=== PATIENT | female | born 1955 | race Caucasian/White ===

== ENCOUNTER → 2017-11-22 | Outpatient (CLI) | payer OTHER ==
--- NOTE | 2017-11-27 14:01 | MM ---
Reason for exam: screening (asymptomatic). Last mammogram was performed 2 years and 3 months ago. History: Patient is postmenopausal. Took hormonal contraceptives for 5 years. Physical Findings: A clinical breast exam by your physician is recommended on an annual basis and results should be correlated with mammographic findings. MG Screening Mammo w CAD Bilateral CC and MLO view(s) were taken. Prior study comparison: August 17, 2015, bilateral MG screening mammo w CAD. April 04, 2012, bilateral screening mammogram free. The breast tissue is heterogeneously dense. This may lower the sensitivity of mammography. No suspicious abnormality. No significant changes when compared with prior studies. ASSESSMENT: Negative, BI-RAD 1 RECOMMENDATION: Routine screening mammogram of both breasts in 1 year.
== END | disposition home or self-care (01) ==
LOC: RADMAMWWP 07:19
PROVIDERS: ATTEND Family Medicine
DX: Z12.31 Encounter for screening mammogram for malignant neoplasm of breast (principal)
CPT/HCPCS: 77067

== ENCOUNTER → 2021-03-24 | Outpatient (CLI) | payer SELFPAY ==
--- NOTE | 2021-03-25 14:05 | MM ---
Reason for exam: screening (asymptomatic). Last mammogram was performed 3 years and 4 months ago. History: Patient is postmenopausal and has history of other cancer at age 61. Took hormonal contraceptives for 5 years. Physical Findings: A clinical breast exam by your physician is recommended on an annual basis and results should be correlated with mammographic findings. MG 3D Screening Mammo W/Cad Bilateral CC and MLO view(s) were taken. Prior study comparison: November 22, 2017, bilateral MG screening mammo w CAD. August 17, 2015, bilateral MG screening mammo w CAD. The breast tissue is heterogeneously dense. This may lower the sensitivity of mammography. Focal asymmetry 9mm middle depth medially 8cm from nipple MLO (41/63) and CC (24/49). This finding is changed when compared with previous exams. ASSESSMENT: Incomplete: need additional imaging evaluation, BI-RAD 0 RECOMMENDATION: Special view mammogram and ultrasound of the left breast. [facility] will attempt to contact patient to return for supplemental views and ultrasound.
== END | disposition home or self-care (01) ==
LOC: RADMAMWWP 15:52
PROVIDERS: ATTEND Family Medicine
DX: Z12.31 Encounter for screening mammogram for malignant neoplasm of breast (principal)
CPT/HCPCS: 77063; 77067

== ENCOUNTER → 2021-04-06 | Outpatient (CLI) | payer MEDICARE, OTHER ==
--- NOTE | 2021-04-06 12:32 | MM ---
Reason for exam: additional evaluation requested from abnormal screening. Last mammogram was performed less than 1 month ago. History: Patient is postmenopausal and has history of other cancer at age 61. Took hormonal contraceptives for 5 years. Physical Findings: Nurse Summary: increased nodularity in the left breast at 6-8 o'clock (nurse db). MG 3D Work Up W/Cad LT Spot compression CC, spot compression MLO, and LM view(s) were taken of the left breast. Prior study comparison: November 22, 2017, bilateral MG screening mammo w CAD. There are scattered fibroglandular densities. Finding: There is a 6 mm high density, spiculated round mass located 8 cm from the nipple in the 10 o'clock middle position of the left breast. There is no discrete abnormality at palpable marker. These results were verbally communicated with the patient and result sheet given to the patient on 04/06/21. ASSESSMENT: Incomplete: need additional imaging evaluation, BI-RAD 0 RECOMMENDATION: Ultrasound of the left breast.
--- NOTE | 2021-04-06 12:34 | USB ---
Reason for exam: additional evaluation requested from abnormal screening. History: Patient is postmenopausal and has history of other cancer at age 61. Took hormonal contraceptives for 5 years beginning at age 17. US Breast Workup Limited LT Left limited breast ultrasound including focal area of concern, retroareolar and axilla demonstrates a 0.5 x 0.4 x 0.7cm mixed lesion at 10 o'clock, probably correlates with mammogram, confirm after biopsy. These results were verbally communicated with the patient and result sheet given to the patient on 04/06/21. ASSESSMENT: Suspicious, BI-RAD 4 RECOMMENDATION: Ultrasound core biopsy of the left breast. (correlate with mammogram following biopsy) Called Dr. Bran office with mammographic findings and has scheduled an appointment for the patient for 05/12/21 at 8:[address] Contreras. Biopsy scheduled for 04/20/21 at 8:00. PRELIMINARY REPORT CALLED AND FAXED TO DR. CONTRERAS ON 04/06/21.
== END | disposition home or self-care (01) ==
LOC: RADMAMWWP 08:17
PROVIDERS: ATTEND Family Medicine
DX: R92.8 Other abnormal and inconclusive findings on diagnostic imaging of breast (principal)
CPT/HCPCS: 77065; 76642; G0279; 77061

== ENCOUNTER → 2021-04-08 | Outpatient (CLI) | payer MEDICARE, OTHER ==
[2021-04-08 14:49] VITALS: BP 108/73; PULSE 72; RESP 12; TEMP 98.3
--- NOTE | 2021-04-08 15:24 | P.GSHP ---
History of Present Illness H&P Date: 04/08/21 Chief Complaint: abnormal mammogram and ultrasound left breast Elsy is a 65-year-old white female who was seen in consultation regarding a radiographic abnormality in her left breast. She is seen for Dr. Bran. She underwent a bilateral mammogram on 03/24/2021 which revealed an area of asymmetric changed 9 mm middle depth 8 cm from the nipple in the left breast. She subsequently underwent a diagnostic left breast mammogram which revealed a 6 mm high-density spiculated mass 8 cm from the nipple to 10 o'clock position of the left breast. This was followed by an ultrasound of the left breast which revealed a 0.5 x 0.7 cm mixed lesion at 10:00 probably correlating with a mammographic finding. The patient does not feel any lumps masses or nodules of concern in either breast. The patient has not had any surgery on her breast. Caffeine: One cup of coffee per day Nicotine: Negative Chocolate: Weight Family history: father:questionable small cell lung cancer Hormonal history: Menarche: 12 M1, breast fed: Yes first at 24 Menopause: Patient underwent a hysterectomy for uterine prolapse at the age of 37 and is uncertain as to when she went through menopause Surgical history: Hysterectomy Left hip replacement Surgery for her eyes at the age of 3 be were crossed Lap vero Cardiac ablation 1998 Medical history: incontinence Social History: nicotine: none alcohol: occasional drugs: none - Constitutional Constitutional: Denies chills, Denies fever - EENT Eyes: bilateral as per HPI Ears: bilateral: decreased hearing (has hearing aids), deny: tinnitus Ears, nose, mouth and throat: Denies headache, Denies sore throat - Breasts Breasts: bilateral: as per HPI - Cardiovascular Comment: ablation 1998 for PVC's not 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 - Respiratory Comment: COVID in August, some cough since then Respiratory: Reports cough - Gastrointestinal Gastrointestinal: Denies abdominal pain, Denies diarrhea, Denies nausea, Denies vomiting - Genitourinary (Female) Comment: incontinence Genitourinary: Denies dysuria, Denies hematuria - Menstruation Menstruation: Reports post hysterectomy - Musculoskeletal Musculoskeletal: Denies myalgias - Integumentary Integumentary: Denies pruritus, Denies rash - Neurological Neurological: Denies numbness, Denies weakness - Psychiatric Psychiatric: Denies anxiety, Denies depression - Endocrine Comment: weight loss 65 pounds intentional Endocrine: Reports weight change, Denies fatigue - Allergic/Immunologic Allergic/Immunologic: Reports as per HPI Past Medical History Additional Past Medical History / Comment(s): explosive watery stools atleast x2 since spring, attempted colonoscopy in Spring 2015 unable to advance scope due to twisted bowel,Hx Mult PVCs History of Any Multi-Drug Resistant Organisms: None Reported Past Surgical History: Cardiac Ablation, Cholecystectomy, Hysterectomy Additional Past Surgical History / Comment(s): crossed eyes repair Past Anesthesia/Blood Transfusion Reactions: Motion Sickness Smoking Status: Never smoker Past Alcohol Use History: Rare Past Drug Use History: None Reported - Past Family History Mother Family Medical History: No Reported History Father Family Medical History: Cancer Medications and Allergies Home Medications Medication Instructions Recorded Confirmed Type Lisinopril-Hctz 20-12.5 mg 1 tab PO DAILY 06/05/16 04/08/21 History [Zestoretic 20-12.5] PARoxetine HCL [Paxil] 10 mg PO QAM 06/05/16 04/08/21 History Travoprost [Travatan Z 0.004%] 1 drop LEFT EYE HS 06/05/16 04/08/21 History Propylene Glycol/Peg 400/Pf 1 drop OPHTHALMIC DAILY PRN 06/07/16 04/08/21 History [Systane 0.3-0.4% Eye Drops] Cetirizine HCl [Zyrtec] 10 mg PO DAILY 04/08/21 04/08/21 History Allergies Allergy/AdvReac Type Severity Reaction Status Date / Time aspirin Allergy Rash/Hives Verified 04/08/21 14:50 Surgical - Exam Vital Signs Temp Pulse Resp BP Pulse Ox 98.3 F 72 12 108/73 99 04/08/21 14:36 04/08/21 14:36 04/08/21 14:36 04/08/21 14:36 04/08/21 14:36 BMI 35.7 - General no distress - Eyes normal ocular movement - ENT normal nares - Neck no masses - Respiratory normal respiratory effort, clear to auscultation - Cardiovascular Rhythm: regular Heart Sounds: normal: S1, S2 - Abdomen Abdomen: soft - Integumentary normal turgor - Neurologic no disoriented, no combative - Musculoskeletal normal gait, normal posture - Psychiatric oriented to time, oriented to person, oriented to place, speech is normal, memory intact Breast Exam: BRA: 38C inspection: grade 2 ptosis palpation: right breast: Positional exam fibrocystic changes no dominant masses or nodules of concern Right axilla: No adenopathy of concern Left breast: Multi-positional exam fibrocystic changes no dominant masses or nodules of concern Left axilla: No adenopathy of concern Results Mammogram and ultrasound results reviewed Assessment and Plan Assessment: Impression: 1. Radiographic abnormality left breast 2. Fibrocystic breast changes Plan: 1. Ultrasound-guided core biopsy left breast/this is to be followed by correlation with mammogram to assure that the area of mammographic abnormality has been adequately sampled Risk and benefits of the procedure discussed with the patient. She understands and wishes to proceed. Risks include but are not limited to bleeding, infection, reaction to the anesthetic. Additionally if the lesion were to be sampled and found to be discordant the needle localization and excision the operating room would be recommended. Cc: Dr. Bran
== END ==
LOC: WWCWWP 14:23
PROVIDERS: ATTEND Surgery
DX: Z53.9 Procedure and treatment not carried out, unspecified reason (principal)

== ENCOUNTER → 2021-04-12 | Outpatient (CLI) | payer MEDICARE, OTHER ==
[2021-04-12 09:04] VITALS: BP 109/79; PULSE 64; RESP 12; TEMP 97.7
--- NOTE | 2021-04-12 10:06 | P.HPOB ---
History of Present Illness H&P Date: 04/12/21 Chief Complaint: The patient is here for her routine gynecologic exam. This is a 65-year-old 012 with an LMP of 1992. The patient is here to establish with this office. She is status post vaginal hysterectomy with A and P repairs in 1992 for benign reasons. The patient has been having increasing problems with urinary incontinence. She previously had the mild incontinence with coughing and sneezing during the past 4 or 5 years. Now she has had several episodes where she can't get to the bathroom quickly enough resulting in leakage. It has been more than 25 years since her last pelvic exam. The patient states she did have a mammogram recently and is scheduled for a breast biopsy on 04/20/2021. She will be seeing Dr. Jameson Linn for this. Review of Systems She states she has lost about 70 pounds intentionally over the past year. This has been with diet and exercise. Respiratory: She is getting over bronchitis. She denies cardiac and G.I. problems. She denies maltreatment or problems with falling. : She has been having worsening urinary leakage. See the HPI for additional details. Past Medical History Past Medical History: COPD (Early COPD with chronic bronchitis.), Hypertension Additional Past Medical History / Comment(s): Hx Mult PVCs improved following cardiac ablation. Seasonal ALLERGIES. Chronic bronchitis. Past TOOLSMITH history: Trichomonas was treated in the past. History of Any Multi-Drug Resistant Organisms: None Reported Past Surgical History: Cardiac Ablation, Cholecystectomy, Hysterectomy, Joint Replacement Additional Past Surgical History / Comment(s): crossed eyes repair age 3. Vaginal hysterectomy with a and P repairs in 1992. Cardiac ablation 1998. Left hip replacement. Colonoscopy 2018(next after 5yr) Past Anesthesia/Blood Transfusion Reactions: Motion Sickness Past Psychological History: Depression Smoking Status: Never smoker Past Alcohol Use History: Occasional (1-2 per week.) Past Drug Use History: Marijuana Additional History: She is a . She started seeing somebody in 2020, but has not been sexually active. She is retired. - Past Family History Mother Family Medical History: COPD, Osteoarthritis (OA) Father Family Medical History: Cancer, Diabetes Mellitus Additional Family Medical History / Comment(s): Lung cancer. Paternal grandmother had diabetes. Medications and Allergies Home Medications Medication Instructions Recorded Confirmed Type Lisinopril-Hctz 20-12.5 mg 1 tab PO DAILY 06/05/16 04/12/21 History [Zestoretic 20-12.5] PARoxetine HCL [Paxil] 10 mg PO QAM 06/05/16 04/12/21 History Travoprost [Travatan Z 0.004%] 1 drop LEFT EYE HS 06/05/16 04/12/21 History Propylene Glycol/Peg 400/Pf 1 drop OPHTHALMIC DAILY PRN 06/07/16 04/12/21 History [Systane 0.3-0.4% Eye Drops] Cetirizine HCl [Zyrtec] 10 mg PO DAILY 04/08/21 04/12/21 History Allergies Allergy/AdvReac Type Severity Reaction Status Date / Time aspirin Allergy Rash/Hives Verified 04/08/21 14:50 Exam Vital Signs Temp Pulse Resp BP Pulse Ox 04/12/21 08:52 97.7 F 64 12 109/79 96 Intake and Output 04/11/21 04/12/21 04/12/21 22:59 06:59 14:59 Other: Weight 88.904 kg Height 5 feet 2 inches, weight 196 pounds, BMI 35.8. This is a well-developed well-nourished white female who is alert and oriented times 3 in no acute distress. HEENT: Within normal limits. NECK: Supple without mass or thyromegaly. CHEST AND LUNGS: Clear to auscultation. HEART: Regular rate and rhythm. BREASTS: Are without mass or discharge. AXILLARY EXAM: Negative for adenopathy. BACK: Negative for CVA tenderness. ABDOMEN: Soft, nontender, without palpable masses. PELVIC EXAM: External genitalia appears normal with mild atrophy. Vagina appears normal with mild atrophy. There is no evidence of prolapse at rest. The vaginal cuff is well supported. With Valsalva and cough, there is moderate urethral mobility. Urinary leakage was not demonstrated. Bimanual examination is negative for mass or tenderness. RECTAL EXAM: Rectovaginal exam is negative for mass or tenderness and is negative for occult blood. There is good sphincter tone. EXTREMITIES: Nontender. IMPRESSION: 1. 65-year-old menopausal female status post vaginal hysterectomy with anterior and posterior repairs. 2. Mixed urinary incontinence with urethral hypermobility with cough and Valsalva. 3. Recent suspicious mammogram. PLAN: 1. Pap smears have been discontinued. 2. Self breast awareness was discussed with the patient. We have also discussed symptoms associated with inflammatory breast cancer. 3. The patient is scheduled for a left breast biopsy on 04/20/2021 and will follow up with Dr. Jameosn Linn for this. 4. Osteoporosis prevention was discussed. I have stressed the importance of adequate calcium, vitamin D and regular exercise. Recommended amounts of calcium and vitamin D were also discussed. She states she had a normal bone density test done earlier this year at [facility]. 5. We have had a long discussion regarding urinary incontinence. I have recommended that she do kegal exercises on a regular basis and instructions were given to her on this. She will also try to not let her bladder get too full. She is requesting a referral to a gynecologic urologist and she will be referred to Dr. Chin Zuñiga for evaluation of her urinary incontinence. 6. She has completed her Covid vaccination series and did receive her flu shot this fall. 7. She was advised to return in one year for her annual well woman exam.
== END | disposition home or self-care (01) ==
LOC: WWCWWP 08:41
PROVIDERS: ATTEND Obstetrics & Gynecology
DX: Z53.9 Procedure and treatment not carried out, unspecified reason (principal)

== ENCOUNTER → 2021-04-20 | Day surgery (SDC) | payer MEDICARE, OTHER ==
[2021-04-20 07:25] VITALS: RESP 16
[2021-04-20 08:37] VITALS: BP 120/65; PULSE 55; TEMP 97.9
--- NOTE | 2021-04-20 09:30 | USB ---
EXAMINATION TYPE: US biopsy breast VAD LT, MG diagnostic mammo LT wo CAD DATE OF EXAM: 04/20/2021 CLINICAL HISTORY: R92.8 ABNORMAL MAMMOGRAM. TECHNIQUE: Ultrasound guided core biopsy of left 10:00 breast. COMPARISON: NONE FINDINGS: The procedure of ultrasound guided core biopsy was explained to the patient. Benefits, alternatives, and risks were discussed. An informed consent was then obtained. The patient was placed in supine positioning for imaging and for the procedure. The overlying skin was prepped and draped in usual sterile fashion. Lidocaine buffered with bicarbonate was used as anesthetic into the skin and subcutaneous tissue up to area of concern in the left 10:00 breast. Under ultrasound guidance, a 12-gauge vacuum assisted biopsy gun device was used to obtain 2 core samples. The lesion could no longer be visible. Following this, a biopsy clip was left in lesion. Postprocedural mammogram demonstrates appropriate clip deployment. The patient tolerated the procedure well without any immediate complication. The patient was kept in the radiology department for short stay after the procedure and then discharged home in stable condition. IMPRESSION: Successful, uncomplicated ultrasound guided core biopsy of area of concern in the left 10:00 breast, full pathology results to follow. Pathology Results: Benign LEFT BREAST, TEN O'CLOCK, ULTRASOUND GUIDED CORE BIOPSY: Apocrine adenoma. Recommendation Follow up ultrasound of the left breast in 6 months. [place]
== END ==
LOC: RADUSWWP 07:09
PROVIDERS: ATTEND Surgery
DX: D24.2 Benign neoplasm of left breast (principal)
CPT/HCPCS: 88305; 77065; 19083; A4648; J2001

== ENCOUNTER → 2021-05-06 | Outpatient (CLI) | payer MEDICARE, OTHER ==
--- NOTE | 2021-05-06 12:50 | P.PN ---
Subjective Progress Note Date: 05/06/21 Principal diagnosis: apocrine adenoma Elsy is a 65 year old white female status post ultrasound-guided core biopsy of a left breast lesion at 10:00 and [id number]. Pathology revealed apocrine adenoma. This was discussed with Dr. Tom from pathology this is felt to be a benign lesion. This is completely asymptomatic for the patient. Was found on routine screening radiograph. The patient tolerated the procedure with no difficulty. At the time of the procedure a cystic component resolved of the lesion. Objective - Constitutional General appearance: Present: cooperative - EENT Eyes: Present: EOMI ENT: Present: hearing grossly normal - Neck Neck: Present: normal ROM - Respiratory Respiratory: bilateral: CTA - Cardiovascular Heart sounds: normal: S1, S2 - Integumentary Integumentary Comment(s): Biopsy site left breast clean and dry Assessment and Plan Assessment: Impression: Left breast apocrine adenoma Plan: Left breast mammogram and ultrasound in 6 months with physician exam at that time CC: Dr. Elvis Bran
[2021-05-06 12:58] VITALS: BP 150/90; PULSE 59; RESP 18; TEMP 97.5
== END | disposition home or self-care (01) ==
LOC: WWCWWP 12:17
PROVIDERS: ATTEND Surgery
DX: Z53.9 Procedure and treatment not carried out, unspecified reason (principal)

== ENCOUNTER → 2021-10-10 | Outpatient (CLI) | payer MEDICARE, OTHER ==
--- NOTE | 2021-10-10 14:18 | MM ---
Reason for exam: follow-up at short interval from prior study. Last mammogram was performed 6 months ago. History: Patient is postmenopausal and has history of other cancer at age 61. Benign US biopsy breast VAD LT of the left breast, April 20, 2021. Took hormonal contraceptives for 5 years beginning at age 17. Physical Findings: A clinical breast exam by your physician is recommended on an annual basis and results should be correlated with mammographic findings. MG 3D Diag Mammo W/Cad LT CC and MLO view(s) were taken of the left breast. Prior study comparison: April 20, 2021, left breast MG diagnostic mammo LT wo CAD. April 06, 2021, left breast MG 3d work up w/cad LT. The breast tissue is heterogeneously dense. This may lower the sensitivity of mammography. Previous ultrasound biopsy. Results were given to the patient verbally at the time of the exam. ASSESSMENT: Incomplete: need additional imaging evaluation, BI-RAD 0 RECOMMENDATION: Ultrasound of the left breast.
--- NOTE | 2021-10-10 14:19 | USB ---
Reason for exam: additional evaluation requested from abnormal screening. History: Patient is postmenopausal and has history of other cancer at age 61. Benign US biopsy breast VAD LT of the left breast, April 20, 2021. Took hormonal contraceptives for 5 years beginning at age 17. Physical Findings: A clinical breast exam by your physician is recommended on an annual basis and results should be correlated with mammographic findings. US Breast Limited LT Technologist: Gisela Gallagher Left limited breast ultrasound including focal area of concern, retroareolar and axilla demonstrates no cystic or solid lesion seen. Scanned 9-11 o'clock. Results were given to the patient verbally at the time of the exam. ASSESSMENT: Negative, BI-RAD 1 RECOMMENDATION: Return to routine screening mammogram schedule for both breasts. Back on schedule.
== END | disposition home or self-care (01) ==
LOC: RADMAMWWP 12:49
PROVIDERS: ATTEND Surgery
DX: R92.8 Other abnormal and inconclusive findings on diagnostic imaging of breast (principal)
CPT/HCPCS: 77065; 76642; G0279; 77061

== ENCOUNTER → 2021-10-14 | Outpatient (CLI) | payer MEDICARE, OTHER ==
[2021-10-14 10:55] VITALS: BP 131/83; PULSE 57; RESP 18; TEMP 97.5
--- NOTE | 2021-10-14 11:35 | P.PN ---
Subjective Progress Note Date: 10/14/21 Principal diagnosis: apocrine adenoma of the left breast Elsy is a 65-year-old white female who was seen in consultation on 04-08-21 regarding a radiographic abnormality in her left breast. She was seen for Dr. Bran. She underwent a bilateral mammogram on 03/24/2021 which revealed an area of asymmetric changed 9 mm middle depth 8 cm from the nipple in the left breast. She subsequently underwent a diagnostic left breast mammogram which revealed a 6 mm high-density spiculated mass 8 cm from the nipple to 10 o'clock position of the left breast. This was followed by an ultrasound of the left breast which revealed a 0.5 x 0.7 cm mixed lesion at 10:00 probably correlating with a mammographic finding. An ultrasound core biopsy of hte lesion was done on 04-20-21. Pathology was an apocrine adenoma. This is completely asymptomatic for the patient. The plan was for repeat left breast mammogram and ultrasound in 6 months. Left breast mammogram and ultrasound were done on 10-10-21 which were benign BIRAD 1. The patient does not feel any lumps masses or nodules of concern in either breast. The patient has not had any surgery on her breast. Caffeine: One cup of coffee per day Nicotine: Negative Chocolate: Weight Family history: father:questionable small cell lung cancer Hormonal history: Menarche: 12 M1, breast fed: Yes first at 24 Menopause: Patient underwent a hysterectomy for uterine prolapse at the age of 37 and is uncertain as to when she went through menopause Surgical history: Hysterectomy Left hip replacement Surgery for her eyes at the age of 3 be were crossed Lap vero Cardiac ablation 1998 biopsy left breast Medical history: incontinence Social History: nicotine: none alcohol: occasional drugs: none - Constitutional Constitutional: Denies chills, Denies fever - EENT Eyes: bilateral as per HPI Ears: bilateral: decreased hearing (has hearing aids), deny: tinnitus Ears, nose, mouth and throat: Denies headache, Denies sore throat - Breasts Breasts: bilateral: as per HPI - Cardiovascular Comment: ablation 1998 for PVC's 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 - Respiratory Comment: COVID in August, some cough since then Respiratory: Reports cough - Gastrointestinal Gastrointestinal: Denies abdominal pain, Denies diarrhea, Denies nausea, Denies vomiting - Genitourinary (Female) Comment: incontinence Genitourinary: Denies dysuria, Denies hematuria - Menstruation Menstruation: Reports post hysterectomy - Musculoskeletal Musculoskeletal: Denies myalgias - Integumentary Integumentary: Denies pruritus, Denies rash - Neurological Neurological: Denies numbness, Denies weakness - Psychiatric Psychiatric: Denies anxiety, Denies depression - Endocrine Comment: weight loss 65 pounds intentional Endocrine: Reports weight change, Denies fatigue - Allergic/Immunologic Allergic/Immunologic: Reports as per HPI Objective - Vital Signs Vital signs: Vital Signs Temp 97.5 F L 10/14/21 10:51 Pulse 57 L 10/14/21 10:51 Resp 18 10/14/21 10:51 BP 131/83 10/14/21 10:51 Pulse Ox 99 10/14/21 10:51 Intake & Output 10/13/21 10/14/21 10/14/21 18:59 06:59 18:59 Weight 92.986 kg - Exam BMI 37.5 - Constitutional General appearance: Present: cooperative - EENT Eyes: Present: EOMI ENT: Present: hearing grossly normal - Neck Neck: Present: normal ROM - Respiratory Respiratory: bilateral: CTA - Cardiovascular Rhythm: regular Heart sounds: normal: S1, S2 - Integumentary Integumentary: Present: normal turgor - Musculoskeletal Musculoskeletal: Present: gait normal - Psychiatric Psychiatric: Present: A&O x's 3, appropriate affect, intact judgment & insight - Additional findings Additional findings: Breast Exam: BRA: 38C inspection: grade 2/3 ptosis bilateral Palpation: right breast: Positional exam fibrocystic changes no dominant masses or nodules of concern Right axilla: No adenopathy of concern Left breast: Multi-positional exam fibrocystic changes no dominant masses or nodules of concern Left axilla: No adenopathy of concern Assessment and Plan Assessment: Impression: Prior left breast ultrasound core biopsy apocrine adenoma Fibrocystic breast changes Recent left breast mammogram and ultrasound benign BIRADS 1 Plan: Bilateral mammogram in April with examination at that time
== END | disposition home or self-care (01) ==
LOC: WWCWWP 10:43
PROVIDERS: ATTEND Surgery
DX: Z53.9 Procedure and treatment not carried out, unspecified reason (principal)

== ENCOUNTER → 2022-04-13 | Outpatient (CLI) | payer MEDICARE, OTHER ==
--- NOTE | 2022-04-13 13:47 | MM ---
Reason for Exam: Follow-up at short interval from prior study. Last mammogram was performed 1 year(s) and 1 month(s) ago. Patient History: Menarche at age 12. First Full-Term at age 24. Hysterectomy at age 37. Postmenopausal. Other cancer, age 61. Hormonal Contraceptives for 5 years from age 17 until age 22. 04/20/2021, Benign Core Biopsy on the left side. Risk Values: Jenny 5 year model risk: 2.2%. NCI Lifetime model risk: 7.6%. Prior Study Comparison: 05/14/1990 Screening Mammogram, Unknown. 03/24/2021 Bilateral Screening Mammogram, [facility]. 04/06/2021 Left Diagnostic Mammogram, [facility]. 04/06/2021 Left Diagnostic Ultrasound, [facility]. 04/20/2021 Left Diagnostic Mammogram, [facility]. 10/10/2021 Left Diagnostic Mammogram, [facility]. 10/10/2021 Left Diagnostic Ultrasound, [facility]. Tissue Density: There are scattered fibroglandular densities. Findings: Analyzed By CAD. Biopsy clip demonstrated within the left breast. Asymmetry within the central middle depth right breast which does not persist with compression. No suspicious cluster microcalcifications within either breast. No new suspicious mass. Overall Assessment: Benign, BI-RAD 2 Management: Screening Mammogram of both breasts in 1 year. A clinical breast exam by your physician is recommended on an annual basis and results should be correlated with mammographic findings. This exam should not preclude additional follow-up of suspicious palpable abnormalities. Results were given to the patient verbally at the time of exam. Electronically signed and approved by: Tank Wilkinson D.O.
== END | disposition home or self-care (01) ==
LOC: RADMAMWWP 12:56
PROVIDERS: ATTEND Surgery
DX: R92.8 Other abnormal and inconclusive findings on diagnostic imaging of breast (principal)
CPT/HCPCS: 77066; G0279; 77062

== ENCOUNTER → 2022-04-14 | Outpatient (CLI) | payer MEDICARE, OTHER ==
[2022-04-14 10:26] VITALS: BP 133/81; PULSE 58; RESP 17; TEMP 98.1
--- NOTE | 2022-04-14 10:50 | P.PN ---
Subjective Progress Note Date: 04/14/22 Principal diagnosis: apocrine adenoma left breast pocrine adenoma of the left breast Elsy is a 65-year-old white female who was seen in consultation on 04-08-21 regarding a radiographic abnormality in her left breast. She was seen for Dr. Bran. She underwent a bilateral mammogram on 03/24/2021 which revealed an area of asymmetric changed 9 mm middle depth 8 cm from the nipple in the left breast. She subsequently underwent a diagnostic left breast mammogram which revealed a 6 mm high-density spiculated mass 8 cm from the nipple to 10 o'clock position of the left breast. This was followed by an ultrasound of the left breast which revealed a 0.5 x 0.7 cm mixed lesion at 10:00 probably correlating with a mammographic finding. An ultrasound core biopsy of the lesion was done on 04-20-21. Pathology was an apocrine adenoma. This is completely asymptomatic for the patient. The plan was for repeat left breast mammogram and ultrasound in 6 months. Left breast mammogram and ultrasound were done on 10-10-21 which were benign BIRAD 1. 04-14-22 Bilateral mammogram was performed on [id number]. This was benign BIRAD 2 The patient does not feel any lumps masses or nodules of concern in either breast. The patient has not had any surgery on her breast. Caffeine: One cup of coffee per day Nicotine: Negative Chocolate: Weight Family history: father:questionable small cell lung cancer Hormonal history: Menarche: 12 M1, breast fed: Yes first at 24 Menopause: Patient underwent a hysterectomy for uterine prolapse at the age of 37 and is uncertain as to when she went through menopause Surgical history: Hysterectomy Left hip replacement Surgery for her eyes at the age of 3 be were crossed Lap vero Cardiac ablation 1998 biopsy left breast Medical history: incontinence (improved) Social History: nicotine: none alcohol: occasional drugs: none - Constitutional Constitutional: Denies chills, Denies fever - EENT Eyes: bilateral as per HPI Ears: bilateral: decreased hearing (has hearing aids), deny: tinnitus Ears, nose, mouth and throat: Denies headache, Denies sore throat - Breasts Breasts: bilateral: as per HPI - Cardiovascular Comment: ablation 1998 for PVC's 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 - Respiratory Comment: COVID in August, some cough since then Respiratory: Reports cough - Gastrointestinal Gastrointestinal: Denies abdominal pain, Denies diarrhea, Denies nausea, Denies vomiting - Genitourinary (Female) Comment: incontinence Genitourinary: Denies dysuria, Denies hematuria - Menstruation Menstruation: Reports post hysterectomy - Musculoskeletal Musculoskeletal: Denies myalgias - Integumentary Integumentary: Denies pruritus, Denies rash - Neurological Neurological: Denies numbness, Denies weakness - Psychiatric Psychiatric: Denies anxiety, Denies depression - Endocrine Comment: weight loss 65 pounds intentional Endocrine: Reports weight change, Denies fatigue - Allergic/Immunologic Allergic/Immunologic: Reports as per HPI Objective - Vital Signs Vital signs: Vital Signs Temp 98.1 F 04/14/22 10:23 Pulse 58 L 04/14/22 10:23 Resp 17 04/14/22 10:23 BP 133/81 04/14/22 10:23 Pulse Ox 97 04/14/22 10:23 FiO2 Intake & Output 04/13/22 04/14/22 04/14/22 18:59 06:59 18:59 Weight 97.522 kg - Constitutional General appearance: Present: cooperative - EENT Eyes: Present: EOMI ENT: Present: hearing grossly normal - Neck Neck: Present: normal ROM - Respiratory Respiratory: bilateral: CTA - Cardiovascular Rhythm: regular Heart sounds: normal: S1, S2 - Gastrointestinal General gastrointestinal: Present: soft - Integumentary Integumentary: Present: normal turgor - Musculoskeletal Musculoskeletal: Present: gait normal - Psychiatric Psychiatric: Present: A&O x's 3, appropriate affect, intact judgment & insight - Additional findings Additional findings: Breast Exam: BRA: 38C inspection: grade 2/3 ptosis bilateral Palpation: right breast: multi-Positional exam fibrocystic changes no dominant masses or nodules of concern Right axilla: No adenopathy of concern Left breast: Multi-positional exam fibrocystic changes no dominant masses or nodules of concern Left axilla: No adenopathy of concern Assessment and Plan Assessment: Assessment and Plan Assessment: Impression: Prior left breast ultrasound core biopsy apocrine adenoma; 2020 Fibrocystic breast changes Recent bilateral mammogram 04-13-22 BIRAD 2 Plan: Bilateral mammogram one year with appointment at that time CC: Dr. Bran
== END ==
LOC: WWCWWP 09:27
PROVIDERS: ATTEND Surgery
DX: N60.11 Diffuse cystic mastopathy of right breast (principal); N60.12 Diffuse cystic mastopathy of left breast; E66.9 Obesity, unspecified; Z68.39 Body mass index [BMI] 39.0-39.9, adult; Z88.6 Allergy status to analgesic agent

== ENCOUNTER → 2023-04-19 | Outpatient (CLI) | payer MEDICARE ==
--- NOTE | 2023-04-19 11:46 | P.PN ---
Subjective Progress Note Date: 04/19/23 apocrine adenoma left breast pocrine adenoma of the left breast Elsy is a 65-year-old white female who was seen in consultation on 04-08-21 regarding a radiographic abnormality in her left breast. She was seen for Dr. Bran. She underwent a bilateral mammogram on 03/24/2021 which revealed an area of asymmetric changed 9 mm middle depth 8 cm from the nipple in the left breast. She subsequently underwent a diagnostic left breast mammogram which revealed a 6 mm high-density spiculated mass 8 cm from the nipple to 10 o'clock position of the left breast. This was followed by an ultrasound of the left breast which revealed a 0.5 x 0.7 cm mixed lesion at 10:00 probably correlating with a mammographic finding. An ultrasound core biopsy of the lesion was done on 04-20-21. Pathology was an apocrine adenoma. This is completely asymptomatic for the patient. The plan was for repeat left breast mammogram and ultrasound in 6 months. Left breast mammogram and ultrasound were done on 10-10-21 which were benign BIRAD 1. 04-14-22 Bilateral mammogram was performed on [id number]. This was benign BIRAD 2 The patient does not feel any lumps masses or nodules of concern in either breast. The patient has not had any surgery on her breast. 04-19-23 The patient does not feel any lumps masses or nodules of concern in either breast. She had a bilateral mammogram on 04-16-23 BIRAD 2. Caffeine: One cup of coffee per day Nicotine: Negative Chocolate: Weight Family history: father:questionable small cell lung cancer Hormonal history: Menarche: 12 M1, breast fed: Yes first at 24 Menopause: Patient underwent a hysterectomy for uterine prolapse at the age of 37 and is uncertain as to when she went through menopause Surgical history: Hysterectomy Left hip replacement Surgery for her eyes at the age of 3 be were crossed Lap vero Cardiac ablation 1998 biopsy left breast cataract surgery Medical history: incontinence (improved) Social History: nicotine: none alcohol: occasional drugs: none - Constitutional Constitutional: Denies chills, Denies fever - EENT Eyes: bilateral as per HPI Ears: bilateral: decreased hearing (has hearing aids), deny: tinnitus Ears, nose, mouth and throat: Denies headache, Denies sore throat - Breasts Breasts: bilateral: as per HPI - Cardiovascular Comment: ablation 1998 for PVC's 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 - Respiratory Comment: COVID in August, some cough since then Respiratory: Reports cough - Gastrointestinal Gastrointestinal: Denies abdominal pain, Denies diarrhea, Denies nausea, Denies vomiting - Genitourinary (Female) Comment: incontinence Genitourinary: Denies dysuria, Denies hematuria - Menstruation Menstruation: Reports post hysterectomy - Musculoskeletal Musculoskeletal: Denies myalgias - Integumentary Integumentary: Denies pruritus, Denies rash - Neurological Neurological: Denies numbness, Denies weakness - Psychiatric Psychiatric: Denies anxiety, Denies depression - Endocrine Comment: weight loss 65 pounds intentional Endocrine: Reports weight change, Denies fatigue - Allergic/Immunologic Allergic/Immunologic: Reports as per HPI Objective - Constitutional General appearance: Present: cooperative - EENT Eyes: Present: EOMI ENT: Present: hearing grossly normal - Neck Neck: Present: normal ROM - Respiratory Respiratory: bilateral: CTA - Cardiovascular Rhythm: regular Heart sounds: normal: S1, S2 - Integumentary Integumentary: Present: normal turgor - Musculoskeletal Musculoskeletal: Present: gait normal - Psychiatric Psychiatric: Present: A&O x's 3, appropriate affect, intact judgment & insight - Additional findings Additional findings: Breast Exam: BRA: 38C inspection: grade 2/3 ptosis bilateral Palpation: right breast: multi-Positional exam fibrocystic changes no dominant masses or nodules of concern Right axilla: No adenopathy of concern Left breast: Multi-positional exam fibrocystic changes no dominant masses or nodules of concern Left axilla: No adenopathy of concern Assessment and Plan Assessment: Impression: Prior left breast ultrasound core biopsy apocrine adenoma; 2020 Fibrocystic breast changes Recent bilateral mammogram 04-16-23 BIRAD 2 Plan: Bilateral mammogram one year with appointment at that time CC: Dr. Bran
[2023-04-19 12:00] VITALS: BP 147/81; PULSE 69; RESP 18; TEMP 98
== END ==
LOC: WWCWWP 11:32
PROVIDERS: ATTEND Surgery
DX: N60.12 Diffuse cystic mastopathy of left breast (principal); N63.22 Unspecified lump in the left breast, upper inner quadrant; N64.89 Other specified disorders of breast; Z88.6 Allergy status to analgesic agent

== ENCOUNTER → 2024-04-18 | Outpatient (CLI) | payer MEDICARE ==
--- NOTE | 2024-04-22 09:23 | MM ---
Reason for Exam: Screening (asymptomatic). Last screening mammogram was performed 12 month(s) ago. Patient History: Menarche at age 12. First Full-Term at age 24. Hysterectomy at age 37. Postmenopausal. Other cancer, age 61. Hormonal Contraceptives for 5 years from age 17 until age 22. 04/20/2021, Benign Core Biopsy on the left side. Risk Values: Jenny 5 year model risk: 2.3%. NCI Lifetime model risk: 6.9%. Prior Study Comparison: 10/10/2021 Left Diagnostic Mammogram, [facility]. 04/13/2022 Bilateral MG 3D diag mammo w/cad [facility], [facility]. 04/16/2023 Bilateral MG 3D screening mammo w/cad, [facility]. Tissue Density: The breasts are heterogeneously dense, which may obscure small masses. Findings: Analyzed By CAD. There is no suspicious group of microcalcifications or new suspicious mass in either breast. Overall Assessment: Negative, BI-RAD 1 Management: Screening Mammogram of both breasts in 1 year. . Patient should continue monthly self-breast exams. A clinical breast exam by your physician is recommended on an annual basis. This exam should not preclude additional follow-up of suspicious palpable abnormalities. Note on Jenny scores and lifetime risk: 1. A Jenny score greater than 3% is considered moderate risk. If this is the case, consider specialist referral to assess eligibility for a risk reducing agent. 2. If overall lifetime risk for the development of breast cancer is 20% or higher, the patient may qualify for future screening with alternating mammogram and breast MRI. [facility], , 04/22/2024 9:20 AM. Electronically signed and approved by: Satinder Boykin M.D. Radiologis
== END | disposition home or self-care (01) ==
LOC: RADMAMWWP 09:05
PROVIDERS: ATTEND Surgery
CPT/HCPCS: 77063; 77067

== ENCOUNTER 2024-04-22 10:54 | Day surgery (SDC) | payer MEDICARE ==
[2024-04-18 10:29] VITALS: BMI 44.8
[~2024-04-22 10:54] MED LIST: LACTATED RINGERS 1,000 ML IV SCH; LIDOCAINE 1% (10MG/ML) FOR IV START INTRADERMA PRN; ONDANSETRON 4 MG/2 ML VIAL IVP PRN
[2024-04-22 11:19] VITALS: TEMP 97.3
[2024-04-22] MEDS: IV FLUID CONTINUATION 1,000 ML IV ONE ×2 (11:32→11:59)
[2024-04-22] MEDS ORDERED: PROPOFOL 10 MG/ML 20 ML VIAL IV ONE (11:36)
--- NOTE | 2024-04-22 11:38 | P.GSHP ---
History of Present Illness H&P Date: 04/22/24 Chief Complaint: Colon cancer screening 68-year-old female here for colonoscopy. Last colonoscopy 8 years ago. Patient had a hyperplastic polyp involving a fold of the ascending colon that was mostly excised. No family history of colon cancer. No bowel complaints. 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 Glaucoma. "Begining of COPD". occasional Excema. History of Any Multi-Drug Resistant Organisms: None Reported Past Surgical History: Cardiac Ablation, Cholecystectomy, Hysterectomy, Joint Replacement Additional Past Surgical History / Comment(s): crossed eyes repair. Cystocele and rectocele repair with Hysterectomy. Cardiac ablation 1998. Lt hip repalcement. Colonoscopy. Past Anesthesia/Blood Transfusion Reactions: Motion Sickness Additional Past Anesthesia/Blood Transfusion Reaction / Comment(s): No hx of blood transfusion. Smoking Status: Never smoker - Past Family History Mother Family Medical History: No Reported History Father Family Medical History: Cancer Additional Family Medical History / Comment(s): Small cell lung cancer Medications and Allergies Home Medications Medication Instructions Recorded Confirmed Type Lisinopril-Hctz 20-12.5 mg 1 tab PO DAILY 06/05/16 04/18/24 History [Zestoretic 20-12.5] Vits A,C,E/Lutein/Minerals 2 each PO DAILY 04/19/21 04/18/24 History [Ocuvite with Lutein Tablet] Fexofenadine HCl [Inez Allergy] 180 mg PO DAILY 04/19/23 04/18/24 History Aleve(Unknown Dose) 1 dose PO Q8H PRN 04/18/24 04/18/24 History Atrovent (Unonwn Dose) 2 puff INHALATION TID PRN 04/18/24 04/22/24 History Allergies Allergy/AdvReac Type Severity Reaction Status Date / Time aspirin Allergy Rash/Hives Verified 04/22/24 11:15 Surgical - Exam Vital Signs Temp Pulse Resp BP Pulse Ox 97.3 F L 66 16 157/79 96 04/22/24 11:18 04/22/24 11:18 04/22/24 11:18 04/22/24 11:18 04/22/24 11:18 Physical exam: General: Well-developed, well-nourished HEENT: Normocephalic, sclerae nonicteric Abdomen: Nontender, nondistended Extremities: No edema Neuro: Alert and oriented Assessment and Plan (1) Colon cancer screening Narrative/Plan: Will proceed with colonoscopy at this time. Current Visit: Yes Status: Acute Code(s): Z12.11 - ENCOUNTER FOR SCREENING FOR MALIGNANT NEOPLASM OF COLON SNOMED Code(s): 095390784
--- NOTE | 2024-04-22 12:01 | P.PCN ---
Date of Procedure: 04/22/24 Procedure(s) Performed: PREOPERATIVE DIAGNOSIS: Colon cancer screening POSTOPERATIVE DIAGNOSIS: Small ascending colon polyp PROCEDURE: Colonoscopy with snare polypectomy ANESTHESIA: MAC SURGEON: Karl Contreras M.D. SPECIMENS: Ascending colon polyp ENDOSCOPIC PROCEDURE: The patient was placed on the endoscopy table in the left decubitus position. The Olympus colonoscope was inserted into the anus and passed under direct visualization to the cecum. I was unable to see the entirety of the cecal base because of tortuosity of the colon. No abnormalities of the cecum were noted. In the mid ascending colon a small superficial polyp was identified and removed using the snare with cautery technique. The remainder of the ascending transverse descending sigmoid and rectum appeared normal. There was no visible diverticulosis. Digital rectal examination was normal. The patient was taken to the recovery room in stable condition per anesthesia guidelines. RECOMMENDATIONS: Await biopsy results.
[2024-04-22 12:19] VITALS: BP 123/81; PULSE 54; RESP 18
== END 2024-04-22 12:41 | disposition home or self-care (01) ==
LOC: ORWHC2ENDO 10:54
PROVIDERS: ATTEND Surgery
CPT/HCPCS: 45385; 88305

== ENCOUNTER → 2024-04-28 | Outpatient (CLI) | payer MEDICARE ==
--- NOTE | 2024-04-28 10:38 | P.PN ---
Subjective Progress Note Date: 04/28/24 Principal diagnosis: left breast apocrine adenoma in 2020, stable 04-28-24 Elsy is a 68-year-old white female who was seen in consultation on 04-08-21 regarding a radiographic abnormality in her left breast. She was seen for Dr. Bran. She underwent a bilateral mammogram on 03/24/2021 which revealed an area of asymmetric changed 9 mm middle depth 8 cm from the nipple in the left breast. She subsequently underwent a diagnostic left breast mammogram which revealed a 6 mm high-density spiculated mass 8 cm from the nipple to 10 o'clock position of the left breast. This was followed by an ultrasound of the left breast which revealed a 0.5 x 0.7 cm mixed lesion at 10:00 probably correlating with a mammographic finding. An ultrasound core biopsy of the lesion was done on 04-20-21. Pathology was an apocrine adenoma. This is completely asymptomatic for the patient. The plan was for repeat left breast mammogram and ultrasound in 6 months. Left breast mammogram and ultrasound were done on 10-10-21 which were benign BIRAD 1. She has had regular follow up , her most recent mammogram was on 04-18-24 and was BIRAD 1, this was personally interpreted. She is not complaining of any new lumps masses or nodules of concern in either breast. Caffeine: One cup of coffee per day Nicotine: Negative Chocolate: Weight Family history: father:questionable small cell lung cancer Hormonal history: Menarche: 12 M1, breast fed: Yes first at 24 Menopause: Patient underwent a hysterectomy for uterine prolapse at the age of 37 and is uncertain as to when she went through menopause Surgical history: Hysterectomy Left hip replacement Surgery for her eyes at the age of 3 be were crossed Lap vero Cardiac ablation 1998 biopsy left breast cataract surgery Medical history: incontinence (improved) Social History: nicotine: none alcohol: occasional drugs: none - Constitutional Constitutional: Denies chills, Denies fever - EENT Eyes: bilateral as per HPI Ears: bilateral: decreased hearing (has hearing aids), deny: tinnitus Ears, nose, mouth and throat: Denies headache, Denies sore throat - Breasts Breasts: bilateral: as per HPI - Cardiovascular Comment: ablation 1998 for PVC's 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 - Respiratory Comment: COVID in August, some cough since then Respiratory: Reports cough - Gastrointestinal Gastrointestinal: Denies abdominal pain, Denies diarrhea, Denies nausea, Denies vomiting - Genitourinary (Female) Comment: incontinence Genitourinary: Denies dysuria, Denies hematuria - Menstruation Menstruation: Reports post hysterectomy - Musculoskeletal Musculoskeletal: Denies myalgias - Integumentary Integumentary: Denies pruritus, Denies rash - Neurological Neurological: Denies numbness, Denies weakness - Psychiatric Psychiatric: Denies anxiety, Denies depression - Endocrine Comment: weight loss 65 pounds intentional Endocrine: Reports weight change, Denies fatigue - Allergic/Immunologic Allergic/Immunologic: Reports as per HPI Objective - Constitutional General appearance: Present: cooperative - EENT Eyes: Present: EOMI ENT: Present: hearing grossly normal - Neck Neck: Present: normal ROM - Respiratory Respiratory: bilateral: CTA - Cardiovascular Rhythm: regular Heart sounds: normal: S1, S2 - Integumentary Integumentary: Present: normal turgor - Musculoskeletal Musculoskeletal: Present: gait normal - Psychiatric Psychiatric: Present: A&O x's 3, appropriate affect, intact judgment & insight - Additional findings Additional findings: Breast Exam: BRA: 44C inspection: grade 2/3 ptosis bilateral, left breast larger than right breast Palpation: right breast: multi-Positional exam fibrocystic changes no dominant masses or nodules of concern Right axilla: No adenopathy of concern Left breast: Multi-positional exam fibrocystic changes no dominant masses or nodules of concern Left axilla: No adenopathy of concern Assessment and Plan Assessment: Impression: Prior left breast ultrasound core biopsy apocrine adenoma; 2020 Fibrocystic breast changes Recent bilateral mammogram 04-18-24 BIRAD 1 Plan: Bilateral mammogram one year, O tober 2024 with appointment at that time Patient to follow up sooner any concerns CC: Dr. Bran
[2024-04-28 11:45] VITALS: BP 122/77; PULSE 64; RESP 17; TEMP 98.1
== END ==
LOC: WWCWWP 09:23
PROVIDERS: ATTEND Surgery